=== PATIENT | male | born 1980 | race Caucasian/White ===

== ENCOUNTER 2020-05-02 09:19 | Emergency (ER) | payer SELFPAY ==
--- NOTE | 2020-05-02 10:14 | EDM.PDOC ---
ED HPI GENERAL MEDICAL PROBLEM - General Chief Complaint: General Stated Complaint: SORE THROAT AND FEVER Time Seen by Provider: 05/02/20 09:43 Source of Information: Reports: Patient History Limitations: Reports: No Limitations - History of Present Illness INITIAL COMMENTS - FREE TEXT/NARRATIVE: The patient presents for a cough, fever and sore throat. He woke up feeling like this. He has no medical problems like asthma. He does not smoke. He has no history of heart disease or hypertension. He does not think he has been around anyone with the COVID 19 virus. He has no shortness of breath. He did have a fever this morning. Onset: Gradual Duration: Hour(s): Location: Reports: Other (throat) Quality: Reports: Sharp Severity: Mild Improves with: Reports: None Worsens with: Reports: None Associated Symptoms: Reports: Cough, Fever/Chills. Denies: Chest Pain, Headaches, Nausea/Vomiting, Shortness of Breath Treatments PROCESS STEWARD: Reports: Acetaminophen, Other (see below) Other Treatments PROCESS STEWARD: dayquil - Related Data Allergies Allergy/AdvReac Type Severity Reaction Status Date / Time No Known Allergies Allergy Verified 05/02/20 09:51 Social & Family History - Caffeine Use Caffeine Use: Reports: Coffee - Recreational Drug Use Recreational Drug Use: No ED ROS GENERAL - Review of Systems Review Of Systems: See Below Constitutional: Reports: Fever, Chills HEENT: Reports: Throat Pain Respiratory: Reports: Cough. Denies: Shortness of Breath Cardiovascular: Reports: No Symptoms Endocrine: Reports: No Symptoms GI/Abdominal: Reports: No Symptoms : Reports: No Symptoms Musculoskeletal: Reports: No Symptoms ED EXAM, GENERAL - Physical Exam Exam: See Below Exam Limited By: No Limitations General Appearance: Alert, No Apparent Distress Ears: Normal External Exam, Normal Canal, Normal TMs Nose: Normal Inspection Throat/Mouth: Normal Inspection Head: Atraumatic, Normocephalic Neck: Normal Inspection, Supple, Non-Tender Respiratory/Chest: No Respiratory Distress, Lungs Clear, Normal Breath Sounds Cardiovascular: Regular Rate, Rhythm, No Edema, No Murmur GI/Abdominal: Soft, Non-Tender, No Organomegaly, No Mass Back Exam: Normal Inspection Extremities: Normal Inspection Course - Vital Signs Last Recorded V/S: Last Vital Signs Temp 97.3 F 05/02/20 09:48 Pulse 65 05/02/20 09:48 Resp 20 05/02/20 09:48 BP 130/92 H 05/02/20 09:48 Pulse Ox 97 05/02/20 09:48 - Orders/Labs/Meds Orders: Active Orders 24 hr Category Date Time Status CORONAVIRUS COVID-19 PCR [facility] Stat Lab 05/02/20 10:08 Ordered - Re-Assessments/Exams Free Text/Narrative Re-Assessment/Exam: 05/02/20 10:12 I ordered a COVID 19 test. I will discharge him home on quarantine until we know. Departure - Departure Time of Disposition: 10:15 Disposition: Home, Self-Care 01 Condition: Good Clinical Impression: Viral URI, Suspected COVID-19 virus infection - Discharge Information *PRESCRIPTION DRUG MONITORING PROGRAM REVIEWED*: Not Applicable *COPY OF PRESCRIPTION DRUG MONITORING REPORT IN PATIENT TIFFANY: Not Applicable Referrals: PCP,None [Primary Care Provider] - Forms: ED Department Discharge, ED Return to Work/School Form Additional Instructions: Drink plenty of fluids. Take tylenol or motrin for any fever or pain. Please return if you are worse. Sepsis Event Note (ED) - Evaluation Sepsis Screening Result: No Definite Risk - Focused Exam Vital Signs: Vital Signs Temp Pulse Resp BP Pulse Ox 05/02/20 09:48 97.3 F 65 20 130/92 H 97 - My Orders Last 24 Hours: My Active Orders 05/02/20 10:08 CORONAVIRUS COVID-19 PCR MERGED WITH [facility] Stat - Assessment/Plan Last 24 Hours: My Active Orders 05/02/20 10:08 CORONAVIRUS COVID-19 PCR MERGED WITH [facility] Stat
== END 2020-05-02 10:53 | disposition home or self-care (01) ==
LOC: JD.ED 09:19
DX: J06.9 Acute upper respiratory infection, unspecified (principal); U07.1 COVID-19
CPT/HCPCS: 99283; U0002

== ENCOUNTER 2021-05-22 22:22 | Emergency (ER) | payer BC ==
--- NOTE | 2021-05-23 00:22 | EDM.PDOC ---
ED HPI GENERAL MEDICAL PROBLEM - General Chief Complaint: Bite:Animal, Insect Stated Complaint: DOG BITE/ LT ARM LAC Time Seen by Provider: 05/22/21 23:40 Source of Information: Reports: Patient History Limitations: Reports: No Limitations - History of Present Illness INITIAL COMMENTS - FREE TEXT/NARRATIVE: Patient is 41-year-old male with no past medical history presenting with chief complaint of dog bite to the left forearm. Patient states he was bit by his own dog as he was trying to separate the dog from another of his own dogs. All dogs have been vaccinated appropriately and are up-to-date on rabies shots. This occurred about 2 hours prior to arrival. Patient reports some bleeding and discomfort to the left arm. Otherwise denies any injuries. Left Lower Arm Pain Score (Numeric/FACES): 3 - Related Data Allergies Allergy/AdvReac Type Severity Reaction Status Date / Time No Known Allergies Allergy Verified 05/22/21 23:46 Home Meds: Home Meds . [No Known Home Meds] 05/22/21 [History] Past Medical History - Past Health History Medical/Surgical History: Denies Medical/Surgical History Musculoskeletal History: Reports: Fracture - Past Surgical History HEENT Surgical History: Reports: Oral Surgery Other HEENT Surgeries/Procedures: wisdom teeth extractions GI Surgical History: Reports: Appendectomy Musculoskeletal Surgical History: Reports: ORIF Other Musculoskeletal Surgeries/Procedures:: orif left index finger, right great toe. Social & Family History - Caffeine Use Caffeine Use: Reports: Coffee ED ROS GENERAL - Review of Systems Review Of Systems: Comprehensive ROS is negative, except as noted in HPI. ED EXAM, ANIMAL BITE - Physical Exam Exam: See Below Text/Narrative:: I have reviewed the triage vital signs Const: Well nourished, well developed, appears stated age Eyes: Pupils Equal and reactive to light bilaterally, no conjunctival injection HENT: No signs of trauma or swelling, Neck supple without meningismus CV: Regular Rate Rhythm, Warm, well-perfused extremities RESP: Unlabored respiratory effort MSK: No gross deformities appreciated and there is no bony tenderness to palpation of the left wrist or forearm. Skin: 2 puncture bite higgins noted on the left forearm. There is scant blood but no evidence of foreign body. There is some slight soft tissue swelling surrounding the bite wounds. Warm, dry. No rashes Neuro: Alert, unit operator II-XII grossly intact. Sensation and motor function of extremities grossly intact. Psych: Appropriate mood and affect. Course - Vital Signs Last Recorded V/S: Last Vital Signs Temp 36.9 C 05/22/21 23:42 Pulse 73 05/22/21 23:42 Resp 16 05/22/21 23:42 BP 137/93 H 05/22/21 23:42 Pulse Ox 97 05/22/21 23:42 - Orders/Labs/Meds Orders: Active Orders 24 hr Category Date Time Status Vaccine to be Administered/Admin Charge [RC] ASDIRECTED Care 05/23/21 00:23 Active Meds: Medications Discontinued Medications Generic Name Dose Route Start Last Admin Trade Name Freq PRN Reason Stop Dose Admin Diphtheria/Tetanus/Acell Pertussis 0.5 ml 05/23/21 00:23 05/23/21 00:41 Diphtheria,Pertussis(Acell),Tetanus Vaccine 0.5 Ml Syringe IM 05/23/21 00:24 Not Given .ONCE ONE Departure - Departure Time of Disposition: 00:21 Disposition: Home, Self-Care 01 Clinical Impression: Dog bite of left forearm - Discharge Information Instructions: Animal Bite, Adult Referrals: PCP,None [Primary Care Provider] - Forms: ED Department Discharge Additional Instructions: Monitor for signs of infection such as increased redness, swelling, pain or discharge of pus. Take antibiotics for full course of 10 days. Sepsis Event Note (ED) - Evaluation Sepsis Screening Result: No Definite Risk - Focused Exam Vital Signs: Vital Signs Temp Pulse Resp BP Pulse Ox 05/22/21 23:42 36.9 C 73 16 137/93 H 97 - My Orders Last 24 Hours: My Active Orders 05/23/21 00:23 Vaccine to be Administered/Admin Charge [RC] ASDIRECTED - Assessment/Plan Last 24 Hours: My Active Orders 05/23/21 00:23 Vaccine to be Administered/Admin Charge [RC] ASDIRECTED Assessment:: Patient is 41-year-old male presenting to the emergency room with dog bite. No evidence of other injuries to include fracture or dislocation. Patient was irrigated by nursing staff and placed in sterile dressing. Initiated on antibiotics in the emergency room as well as given tetanus booster. Otherwise, patient will be discharged and not require any imaging at this time. Patient agrees with plan of care.
[2021-05-23] MEDS ORDERED: Diphtheria,Pertussis(Acell),Tetanus Vaccine 0.5 ML Syringe IM ONE (00:23)
== END 2021-05-23 00:40 | disposition home or self-care (01) ==
LOC: JD.ED 22:22
DX: S51.852A Open bite of left forearm, initial encounter (principal); W54.0XXA Bitten by dog, initial encounter
CPT/HCPCS: 99283

== ENCOUNTER 2021-07-29 21:32 | Emergency (ER) | payer BC ==
[2021-07-29] MEDS ORDERED: Acetaminophen 325 MG Tab PO ONE (22:14)
[2021-07-29 23:10] LABS: CORONAVIRUS COVID-19 NAA NEGATIVE (NEGATIVE)
== END 2021-07-29 23:40 | disposition home or self-care (01) ==
LOC: JD.ED 21:32
DX: J06.9 Acute upper respiratory infection, unspecified (principal); B30.9 Viral conjunctivitis, unspecified; Z72.0 Tobacco use; Z20.822 Contact with and (suspected) exposure to COVID-19
CPT/HCPCS: 0241U; 99283; A9270

== ENCOUNTER 2021-10-27 21:28 | Emergency (ER) | payer BC ==
[2021-10-27] MEDS ORDERED: Lidocaine 1% 10 ML MDV INJECT ONE (21:55)
== END 2021-10-27 22:53 | disposition home or self-care (01) ==
LOC: JD.ED 21:28
DX: S61.411A Laceration without foreign body of right hand, initial encounter (principal); Z86.16 Personal history of COVID-19; W26.8XXA Contact with other sharp object(s), not elsewhere classified, initial encounter; Y92.009 Unspecified place in unspecified non-institutional (private) residence as the place of occurrence of the external cause
CPT/HCPCS: 12001; 99282-25